=== PATIENT | female | born 1990 | race Caucasian/White ===

== ENCOUNTER → 2017-03-14 | Outpatient (CLI) | payer BC ==
--- NOTE | 2017-03-14 13:10 | DIAGNOSTIC IMAGING REPORT ---
RIGHT ELBOW ULTRASOUND CLINICAL HISTORY: Soft tissue mass. COMPARISON STUDY: Right forearm radiographs February 23, 2017. FINDINGS: Note is made of a 0.5 x 0.4 x 0.2 cm subcutaneous hypoechoic abnormality overlying the posterior aspect of the right elbow. This represents the palpable finding. No additional abnormalities are identified. IMPRESSION: 5 mm subcutaneous hypoechoic abnormality of the right elbow which reflects the palpable abnormality. The sonographic appearance is nonspecific. This may reflect a small lymph node or resolving hematoma. Clinical follow up to ensure resolution is recommended. Electronically signed by: Warren Patel M.D. 03/14/2017 1:09 PM Dictated Date/Time: 03/14/2017 1:06 PM
== END | disposition home or self-care (01) ==
LOC: C.ULTR 12:27
PROVIDERS: ATTEND Physician Assistant
DX: R22.31 Localized swelling, mass and lump, right upper limb (principal)